=== PATIENT | male | born 1950 | race Caucasian/White ===

== ENCOUNTER 2021-07-05 17:14 | Emergency (ER) | payer MEDICARE ==
[2021-07-05] MEDS ORDERED: LIDOCAINE 2% URO-JET 5 ML SYRINGE UR STA (17:29)
--- NOTE | 2021-07-05 17:31 | ED Physician Documentation ---
PD HPI MALE - Stated complaint Stated Complaint: MALE - History obtained from History obtained from: Patient - Additional information Additional information: 70-year-old gentleman with known massive BPH was seen by urologist in [place] about a month ago and had a postvoid residual of 672. It was discussed with him that he would probably need TURP. He preferred to follow-up with [facility] and did, his postvoid residual was rapidly rising and now he was at 1400. He was offered either Damon or self cathing pending appointment for an operative date and he preferred self cathing. The self cathing has become very painful and he has had a lot of blood clots in the catheter. Now is basically at times unable to pass the catheter. The urine does clear up. He did successfully self cath few hours ago with 1400 mL out. Review of Systems Constitutional: denies: Fever, Chills Cardiac: reports: Reviewed and negative Respiratory: reports: Reviewed and negative GI: reports: Reviewed and negative PD PAST MEDICAL HISTORY - Allergies Allergies/Adverse Reactions: Allergies Allergy/AdvReac Type Severity Reaction Status Date / Time No Known Drug Allergies Allergy Verified 07/05/21 17:38 PD ED PE NORMAL - Vitals Vital signs reviewed: Yes - General General: Alert and oriented X 3, No acute distress - Abdomen Abdomen: Normal bowel sounds, Other (No suprapubic tenderness but there is suprapubic fullness consistent with a large bladder.) - Neuro Neuro: Alert and oriented X 3, Normal speech - Psych Psych: Normal mood, Normal affect Results - Vitals Vitals: Vital Signs - 24 hr 07/05/21 17:31 Temperature 37.3 C Heart Rate 79 Respiratory 16 Rate Blood Pressure 158/87 H O2 Saturation 100 Oxygen O2 Source Room air Procedures - General procedure General procedure: I personally placed a 16 Filipino standard Damon (not a coud). After standard iodine prep and drape. There was significant resistance going through the prostate, but was able to get into the bladder. Some very small blood clots at the beginning which immediately cleared. The patient tolerated well. Departure - Departure Disposition: 01 Home, Self Care Clinical Impression: Urinary retention BPH (benign prostatic hyperplasia) Qualifiers: Lower urinary tract symptom presence: symptoms present Lower urinary tract symptom detail: incomplete bladder emptying Qualified Code(s): N40.1 - Benign prostatic hyperplasia with lower urinary tract symptoms; R39.14 - Feeling of incomplete bladder emptying Condition: Good Record reviewed to determine appropriate education?: Yes Instructions: ED Catheter Care Damon Comments: Continue current medications. As discussed you will need to decide within the month whether you want to have the Damon changed out or go back to self cathing. If you decide you want to go back to self cathing you can return here for Damon removal. Update your urologist as to the current happenings.
[2021-07-05 17:39] VITALS: BP 158/87
== END 2021-07-05 18:10 | disposition home or self-care (01) ==
LOC: ED 17:14
DX: N40.1 Benign prostatic hyperplasia with lower urinary tract symptoms (principal); R33.8 Other retention of urine; R39.14 Feeling of incomplete bladder emptying
CPT/HCPCS: 51702; 99282; 99283

== ENCOUNTER 2021-07-06 01:22 | Emergency (ER) | payer MEDICARE ==
--- NOTE | 2021-07-06 02:19 | ED Physician Documentation ---
History of Present Illness - Stated complaint Stated Complaint: MALE - Chief complaint Chief Complaint: Abd Pain - History obtained from History obtained from: Patient - Additonal information Additional information: 70yM with severe BPH presents after being discharged around 6pm with a grace in place for acute urinary retention. patient is now presenting again because his urine has become blood tinged with tiny clots. patient has had blood clots with catheterizations in the past but was concerned because it initially was straw colored and then turned red. denies dizziness, soa, abd pain. he reports he is drinking water and has emptied the bag three times since placement. 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 Review of Systems GI: denies: Abdominal Pain : reports: Hematuria Neurologic: reports: Other (denies dizziness) PD PAST MEDICAL HISTORY - Present Medications Home Medications: Ambulatory Orders Medication Instructions Recorded Confirmed Simvastatin [Zocor] 20 mg PO DAILY 07/06/21 07/06/21 Tadalafil [Cialis] 10 mg PO DAILY 07/06/21 07/06/21 - Allergies Allergies/Adverse Reactions: Allergies Allergy/AdvReac Type Severity Reaction Status Date / Time No Known Drug Allergies Allergy Verified 07/06/21 01:41 PD ED PE NORMAL - Vitals Vital signs reviewed: Yes - General General: Alert and oriented X 3, No acute distress, Well developed/nourished - HEENT HEENT: Atraumatic, PERRL, EOMI - Abdomen Abdomen: Non tender, Non distended - Male Male : Other (grace catheter with pinkish urine in the tube, bright red urine in the bag. about 300cc in bag) - Back Back: No CVA TTP Results - Vitals Vitals: Vital Signs - 24 hr 07/06/21 01:35 Temperature 36.5 C Heart Rate 81 Respiratory 16 Rate Blood Pressure 170/66 H O2 Saturation 98 Oxygen O2 Source Room air PD MEDICAL DECISION MAKING - ED course ED course: 70yM p/w some hematuria after difficult cath a couple hours prior. patient is otherwise asymptomatic and the grace is draining well therefore I advised close follow up with urology. return precautions given. Departure - Departure Disposition: 01 Home, Self Care Clinical Impression: Hematuria Condition: Good Instructions: ED Catheter Care Grace, Hematuria Comments: You were seen in the emergency department for blood in your grace catheter bag. Please continue to monitor your urine output and return to the ED if it looks like it's not draining. Follow up with your urologist as soon as possible.
[2021-07-06 02:28] VITALS: BP 164/70
== END 2021-07-06 02:28 | disposition home or self-care (01) ==
LOC: ED 01:22
DX: R31.9 Hematuria, unspecified (principal); Y84.6 Urinary catheterization as the cause of abnormal reaction of the patient, or of later complication, without mention of misadventure at the time of the procedure; N40.1 Benign prostatic hyperplasia with lower urinary tract symptoms; R33.8 Other retention of urine
CPT/HCPCS: 99281; 99282

== ENCOUNTER 2021-08-04 12:23 | Outpatient (CLI) | payer MEDICARE ==
--- NOTE | 2021-08-04 15:19 | CT Report ---
PROCEDURE: Abdomen/Pelvis WO INDICATIONS: R FLANK PAIN TECHNIQUE: Noncontrast 5 mm thick sections acquired from the diaphragms to the symphysis. 5 mm coronal and sagi ttal reformats were then performed. For radiation dose reduction, the following was used: automated exposure control, adjustment of mA and/or kV according to patient size. COMPARISON: None. FINDINGS: Image quality: Excellent. ABDOMEN: Lung bases: Focal consolidation in the extreme right lung base, likely representing focal pneumonia. Minimal associated pleural effusion. Heart size is normal. Solid organs: Liver and spleen are normal in size. Gallbladder is unremarkable. Pancreas is normal in contours. No adrenal nodules. Kidneys are normal in size, without hydronephrosis or nephrolithi asis. Peritoneum and bowel: Unenhanced bowel loops demonstrate normal wall thickness and caliber. No free fluid or air. Moderately large fecal load. Nodes and vessels: No retroperitoneal or mesenteric adenopathy by size criteria. Aorta and inferior vena cava are normal in caliber. Miscellaneous: No ventral hernias. PELVIS: Genitourinary: Significantly enlarged prostate gland. Damon catheter in place. Diffuse bladder wall thickening. Miscellaneous: Bilateral fat-containing inguinal hernias. Right testicle is in the inguinal canal. Bones: No suspicious bony lesions. No vertebral body compression fractures. IMPRESSION: 1. No evidence of renal stones, ureteral stones, or hydronephrosis. 2. Significantly enlarged prostate gland, chronic indwelling Damon catheter, diffuse bladder wall thi ckening. 3. Focal pneumonia, extreme right lung base, with minimal associated pleural effusion. 4. Bilateral fat-containing inguinal hernias. Right testicle is currently present in the inguinal can al. Comment: Recommend progress films until pneumonia clears. Reviewed by: Stiven Gill MD on 08/04/2021 3:18 PM PST Approved by: Stiven Gill MD on 08/04/2021 3:18 PM PST Station ID: [id number]
== END 2021-08-04 12:24 | disposition home or self-care (01) ==
LOC: DI 12:23
PROVIDERS: ATTEND Internal Medicine
DX: R10.9 Unspecified abdominal pain (principal); N40.0 Benign prostatic hyperplasia without lower urinary tract symptoms; R93.41 Abnormal radiologic findings on diagnostic imaging of renal pelvis, ureter, or bladder; Z96.0 Presence of urogenital implants; J18.9 Pneumonia, unspecified organism; J91.8 Pleural effusion in other conditions classified elsewhere; K40.20 Bilateral inguinal hernia, without obstruction or gangrene, not specified as recurrent

== ENCOUNTER 2021-08-06 16:03 | Outpatient (CLI) | payer MEDICARE ==
[2021-08-06 17:02] LABS: BILIRUBIN,URINE NEGATIVE (NEGATIVE); GLUCOSE, URINE (UA) NEGATIVE (NEGATIVE); KETONES,URINE (UA) NEGATIVE (NEGATIVE); LEUKOCYTE ESTERASE, URINE NEGATIVE (NEGATIVE); NITRITE,URINE NEGATIVE (NEGATIVE); OCCULT BLOOD,URINE LARGE (NEGATIVE); PROTEIN,URINE TRACE mg/dL (NEGATIVE); UROBILINOGEN,URINE 0.2 (NORMAL) E.U./dL (NORMAL)
[2021-08-06 17:05] LABS: CLARITY,URINE HAZY (CLEAR)
[2021-08-06 17:13] LABS: BACTERIA,URINE Few /HPF (None Seen); EPITHELIAL CELLS,UR RARE Transitional /HPF (<= Few); RBC,URINE TNTC /HPF (0-5); SQUAMOUS EPITHELIAL CELL,UR NONE SEEN (<= Few); WBC,URINE 0-3 /HPF (0-3)
== END 2021-08-06 16:04 | disposition home or self-care (01) ==
LOC: LAB 16:03
DX: N40.1 Benign prostatic hyperplasia with lower urinary tract symptoms (principal); N13.8 Other obstructive and reflux uropathy
CPT/HCPCS: 81001; 87086

== ENCOUNTER 2021-12-02 16:34 | Outpatient (CLI) | payer OTHER, MEDICARE | END 2021-12-02 16:35 | disposition home or self-care (01) | LOC: LAB 16:34 | PROVIDERS: ATTEND Internal Medicine | DX: N40.0 Benign prostatic hyperplasia without lower urinary tract symptoms (principal) | CPT/HCPCS: 36415; 84153 ==

== ENCOUNTER 2022-02-12 07:58 | Day surgery (SDC) | payer MEDICARE, OTHER ==
[2022-02-12] MEDS ORDERED: LACTATED RINGERS 1,000 ML IV ONE (08:28)
--- NOTE | 2022-02-12 08:40 | ANESTHESIA ---
Pre-Anesthesia VS, & Labs - Diagnosis screening - Procedure colonoscopy Vital Signs: Temp Pulse Resp BP Pulse Ox 36.8 C 74 11 L 155/94 H 97 02/12/22 08:29 02/12/22 08:29 02/12/22 08:29 02/12/22 08:29 02/12/22 08:29 Height: 5 ft 8 in - NPO >8 hours Last Fluid Intake: am prep - Lab Results Lab results reviewed: Yes Home Medications and Allergies Simvastatin [Zocor] 20 mg PO DAILY 07/06/21 Tadalafil [Cialis] 10 mg PO DAILY 07/06/21 Allergies/Adverse Reactions: Allergies Allergy/AdvReac Type Severity Reaction Status Date / Time No Known Drug Allergies Allergy Verified 07/06/21 01:41 Anes History & Medical History - Anesthetic History Anesthesia Complications: reports: No previous complications Family history of Anesthesia Complications: Denies Family history of Malignant Hyperthermia: Denies - Medical History Smoking Status: Never smoker Exam General: Alert, Oriented x3, Cooperative Dental: WNL Mouth Openin Fingerbreadth Neck Mobility: Normal Mallampati classification: II Thyromental Distance: 4-6 cm Respiratory: Lungs clear, Normal breath sounds, No respiratory distress Cardiovascular: Regular rate Neurological: Normal speech Mental/Cognitive Status: Alert/Oriented X3, Normal for patient Cognitive Status: Within normal limits Plan Anesthesia Type: Total IV Consent for Procedure(s) Verified and Reviewed: Yes Code Status: Attempt Resuscitation ASA classification: 2-Mild systemic disease Is this case an emergency?: No
[2022-02-12] MEDS ORDERED: LIDOCAINE-MPF 2% 5 ML VIAL ONE (08:48)
[2022-02-12] MEDS ORDERED: PROPOFOL 500 MG/50 ML 500 MG/50 ML VIAL ONE (08:48)
[2022-02-12] MEDS ORDERED: LACTATED RINGERS 500 ML IV ONE (09:38)
[2022-02-12 10:07] VITALS: BP 126/82
--- NOTE | 2022-02-12 10:30 | ANESTHESIA POST OP EVALUATION ---
Anesthesia Post Eval - Post Anesthesia Eval Vitals: Last Vital Signs Temp 36.6 C 02/12/22 10:06 Pulse 60 02/12/22 10:06 Resp 16 02/12/22 10:06 BP 126/82 H 02/12/22 10:06 Pulse Ox 100 02/12/22 10:06 CV Function Including HR & BP: Stable Pain Control: Satisfactory Nausea & Vomiting: Negative Mental Status: Baseline Respiratory Status: Airway Patent Hydration Status: Satisfactory Anesthesia Complications: None
== END 2022-02-12 07:59 | disposition home or self-care (01) ==
LOC: SDS 07:58
PROVIDERS: ATTEND Surgery
DX: Z12.11 Encounter for screening for malignant neoplasm of colon (principal)
CPT/HCPCS: G0121; J7120

== ENCOUNTER 2022-12-24 13:56 | Outpatient (CLI) | payer MEDICARE, OTHER ==
--- NOTE | 2022-12-24 16:40 | MRI Report ---
PROCEDURE: LUMBAR SPINE WO INDICATIONS: NUMBNESS TECHNIQUE: Noncontrast sagittal T1 spin echo and T2 fast echo, coronal T2, sagittal STIR, axial T1 and T2 fast s pin echo through the lumbar spine. COMPARISON: CT dated 08/04/2021 FINDINGS: Image quality: Excellent. Alignment and Curvature: 5 lumbar type vertebral bodies are present by CT. Mild rightward curvature o f the upper lumbar spine. Loss of normal lumbar lordosis. 3 mm of retrolisthesis of L1 on L2. 5 mm of retrolisthesis of L2 on L3. 3 mm of retrolisthesis of L3 on L4. 2 mm of retrolisthesis of L5 on S1. Bone Marrow: Marrow is of normal overall signal. No acute vertebral body compression fractures. Mo derate reactive signal within the endplates adjacent to the L1-L2, L2-L3, and L3-L4 vertebral discs. Mild reactive signal adjacent to the remaining lumbar and lower thoracic endplates. Spinal Cord: Conus medullaris terminates at the upper L2 level. Visualized cord demonstrates normal signal and size. Paraspinous Soft Tissues: No paravertebral masses. T12-L1: Mild disc height loss and desiccation. Mild facet and ligament flavum hypertrophy. Mild sigrid l stenosis. Mild bilateral foraminal stenosis. L1-L2: Severe disc height loss and desiccation. Moderate diffuse disc bulge/osteophyte. Mild facet and ligament flavum hypertrophy. Mild epidural lipomatosis. Mild canal stenosis. Mild bilateral fora tavo stenosis. L2-L3: Severe disc height loss and desiccation. Mild diffuse disc bulge with superimposed left pos terolateral protrusion. Mild facet and ligament flavum hypertrophy. Mild epidural lipomatosis. Mild c anal stenosis. Moderate bilateral foraminal stenosis. L3-L4: Severe disc height loss and desiccation. Mild diffuse disc bulge/osteophyte. Mild facet and ligament flavum hypertrophy. Mild epidural lipomatosis. Mild canal stenosis. Moderate bilateral ismael inal stenosis. L4-L5: Severe disc height loss and desiccation. Mild diffuse disc bulge. Mild facet and ligament fl avum hypertrophy. Mild canal stenosis. Moderate bilateral foraminal stenosis. L5-S1: Severe disc height loss and desiccation. Mild diffuse disc bulge. Mild facet and ligament fl avum hypertrophy. Mild canal stenosis. Moderate to severe bilateral foraminal stenosis. Bilateral L5 nerve root compression. IMPRESSION: 1. Multilevel degenerative disc and facet disease, in addition to epidural lipomatosis and ligamentum flavum hypertrophy. 2. Mild multilevel canal stenoses. 3. Multilevel foraminal stenoses, worst at L5-S1 where there is associated intraforaminal nerve root compression. Recommend correlation with clinical symptoms to ascertain relevance of these findings. Reviewed by: Gerardo Leonardo MD on 12/24/2022 4:39 PM PDT Approved by: Gerardo Leonardo MD on 12/24/2022 4:39 PM PDT Station ID: [id number]
== END 2022-12-24 13:57 | disposition home or self-care (01) ==
LOC: DI 13:56
PROVIDERS: ATTEND Internal Medicine
DX: M47.816 Spondylosis without myelopathy or radiculopathy, lumbar region (principal); M51.36 Other intervertebral disc degeneration, lumbar region; M48.061 Spinal stenosis, lumbar region without neurogenic claudication; M48.07 Spinal stenosis, lumbosacral region

== ENCOUNTER 2023-03-11 13:48 | Outpatient (CLI) | payer MEDICARE, OTHER ==
--- NOTE | 2023-03-11 17:19 | MRI Report ---
PROCEDURE: SHOULDER WO - RT INDICATIONS: SHOULDER PAIN TECHNIQUE: Noncontrast oblique coronal T2 fast spin echo with fat saturation, oblique sagittal T1 spin echo and T2 fast spin echo with fat saturation, axial T1 spin echo and T2 fast spin echo with fat saturation t hrough the shoulder. COMPARISON: None. FINDINGS: Image quality: Excellent. Rotator cuff: There is full-thickness rupture of distal supraspinatus at its insertion on humeral hea d with up to 4 cm medial retraction of torn tendon fibers to the level of acromioclavicular joint. Di stal infraspinatus tendinosis and low-grade articular surface partial-thickness tear at its insertion on humeral head is seen. Low-grade intrasubstance partial thickness tear involving distal subscapula ris is also noted. Moderate to severe supraspinatus muscle atrophy and [id number] infraspinatus muscle atrophy is seen on sagittal images. Bones and bursae: No bone marrow contusions or fractures. There is moderate acromioclavicular joint osteoarthritis with joint space narrowing and downward osteophyte formation depressing on musculotend inous junction of supraspinatus. Superior migration of humeral head in relation to glenoid is also se en. Moderate joint effusion and subacromial subdeltoid bursal fluid is seen. Capsule and soft tissues: In the absence of intra-articular contrast, the labrum and glenohumeral li gaments appear intact. The long head of the biceps tendon is thickened. The rotator interval appears normal, without fibrosis. The coracohumeral ligament is normal in thickness. IMPRESSION: 1. Full-thickness rupture of distal supraspinatus at its insertion on humeral head with up to 4 cm me dial retraction of torn tendon fibers to the level of acromioclavicular joint. Low-grade articular wright rface partial-thickness tear involving distal infraspinatus. Low-grade intrasubstance partial thickne ss tear involving distal subscapularis. Moderate to severe supraspinatus muscle atrophy and mild-to-m oderate infraspinatus muscle atrophy. 2. Superior migration of humeral head in relation to glenoid. No acute fracture or dislocation. Moder ate acromioclavicular joint osteoarthritis. Moderate amount of joint effusion and subacromial subdelt oid bursal fluid. No gross loose bodies. 3. No definite focal labral tear. 4. Proximal long head of biceps tendinosis. Reviewed by: Adarsh Schrader MD on 03/11/2023 5:18 PM PDT Approved by: Adarsh Schrader MD on 03/11/2023 5:18 PM PDT Station ID: [id number]
== END 2023-03-11 13:49 | disposition home or self-care (01) ==
LOC: DI 13:48
PROVIDERS: ATTEND Internal Medicine
DX: M75.121 Complete rotator cuff tear or rupture of right shoulder, not specified as traumatic (principal); M19.011 Primary osteoarthritis, right shoulder; M25.411 Effusion, right shoulder; M75.81 Other shoulder lesions, right shoulder